=== PATIENT | female | born 1955 | race Caucasian/White ===

== ENCOUNTER → 2023-12-13 07:18 | Outpatient (REF) | payer MEDICARE, OTHER, SELFPAY | LOC: WDC 07:18 | PROVIDERS: ATTENDING PHYSICIAN Family Medicine | DX: Z12.31 Encounter for screening mammogram for malignant neoplasm of breast (principal) | CPT/HCPCS: 77063; 77067 ==

== ENCOUNTER → 2023-12-22 09:16 | Outpatient (REF) | payer MEDICARE, OTHER, SELFPAY | LOC: WDC 09:16 | PROVIDERS: ATTENDING PHYSICIAN Family Medicine | DX: R92.8 Other abnormal and inconclusive findings on diagnostic imaging of breast (principal) | CPT/HCPCS: 76642 ==

== ENCOUNTER → 2023-12-27 11:05 | Outpatient (REF) | payer MEDICARE, OTHER, SELFPAY ==
--- NOTE | 2023-12-27 13:35 | OID.BR.INTR ---
[facility] Breast Navigator - Initial
- -
Date of Contact: 12/27/23
Met with patient. Patient given written information on navigator services available at [facility]. Will follow up as needed per protocol.
== END ==
LOC: WDC 11:05
PROVIDERS: ATTENDING PHYSICIAN Family Medicine
DX: N63.21 Unspecified lump in the left breast, upper outer quadrant (principal)
CPT/HCPCS: 88305; 19083; 77065; 88341; 88342; 88360; A4648

== ENCOUNTER → 2024-01-14 12:10 | Outpatient (REF) | payer MEDICARE, OTHER, SELFPAY | LOC: WDC 12:10 | PROVIDERS: ATTENDING PHYSICIAN Surgery; FAMILY PHYSICIAN Family Medicine | DX: R92.2 Inconclusive mammogram (principal); C50.412 Malignant neoplasm of upper-outer quadrant of left female breast | CPT/HCPCS: 76641 ==

== ENCOUNTER → 2024-01-17 06:27 | Day surgery (SDC) | payer MEDICARE, OTHER, SELFPAY ==
[2024-01-17 09:13] LABS: ALT (SGPT) 18 U/L (0-35); AST (SGOT) 27 U/L (14-36); Albumin 4.6 g/dl (3.5-5.0); Alkaline Phosphatase 114 U/L (38-126); Blood Urea Nitrogen 30 mg/dl (7-17); Calcium 9.8 mg/dl (8.4-10.2); Carbon Dioxide 18 mmol/L (22-30); Chloride 114 mmol/L (98-107); Glucose 153 mg/dl (70-99); Potassium 4.2 mmol/L (3.5-5.1); Sodium 143 mmol/L (135-145); Total Bilirubin 0.6 mg/dl (0.2-1.3)
[2024-01-17 09:15] LABS: Hematocrit 41.3 % (37.0-47.0); Hemoglobin 13.6 g/dL (12.0-16.0); Mean Corp Hgb Conc. 32.9 g/dL (33.0-37.0); Mean Corpuscular Hgb 34.3 pg (27.0-31.0); Mean Corpuscular Volume 104.3 fL (81.0-99.0); Mean Platelet Volume 9.4 fL (7.4-10.4); Platelet Count 299 10^3/uL (130-400); Prealbumin (Transthyretin) 39.9 mg/dl (17.6-36.0); Red Blood Cell Count 3.96 10^6/uL (4.20-5.40); Red Cell Dist. Width 13.2 % (11.5-14.5); White Blood Cell Count 8.7 10^3/uL (4.8-10.8)
[2024-01-17 09:28] LABS: Vitamin D, 25-OH*** 31.9 ng/mL (30-80)
== END ==
LOC: SDSPAT 06:27
PROVIDERS: ATTENDING PHYSICIAN Surgery; FAMILY PHYSICIAN Family Medicine
DX: Z01.810 Encounter for preprocedural cardiovascular examination (principal); Z01.812 Encounter for preprocedural laboratory examination; C50.412 Malignant neoplasm of upper-outer quadrant of left female breast
CPT/HCPCS: 93005; 85025; 36415; 80053; 82306; 84134; 85027

== ENCOUNTER → 2024-01-24 09:45 | Outpatient (REF) | payer MEDICARE, OTHER, SELFPAY | LOC: WDC 09:45 | PROVIDERS: ATTENDING PHYSICIAN Surgery | DX: C50.412 Malignant neoplasm of upper-outer quadrant of left female breast (principal); N63.21 Unspecified lump in the left breast, upper outer quadrant | CPT/HCPCS: 19285; 38792; 76942; 77065; A4648; A9541 ==

== ENCOUNTER 2024-01-25 06:47 | Day surgery (SDC) | payer MEDICARE, OTHER, SELFPAY ==
[2024-01-17 09:57] VITALS: BMI 25.6
--- NOTE | 2024-01-18 11:50 | PTCARENOTE ---
Patients 01/16 [id number]- Alexandrea @ Dr. Gustafson office noitified
--- NOTE | 2024-01-19 12:33 | SUR.OPER ---
Spoke with patient- answered questions sharply and with angry tone. Questioned patient regarding same and she stated she 'has nothing to live for, son last year and now this- breast cancer'. Patient very emotional and crying- unable to
complete call and hung up. Klaus @ Dr. Gustafson office notified of interaction.
[2024-01-25] VITALS (9 sets, daily range): BP systolic 93–167; BP diastolic 52–94; BMI 25.6
[2024-01-25] MEDS: NORMOSOL-R 1000 IV (08:05)
[2024-01-25] MEDS: TYLENOL 1000 MG PO (08:08)
[2024-01-25 08:13] LABS: Glucose - Point of Care 137 mg/dl (70-99)
[2024-01-25] MEDS: LOVENOX 40 MG SC (09:16)
--- NOTE | 2024-01-25 11:19 | W.IMMPOSTOP ---
Surgical Immed Post Op Note
-
Primary Surgeon: Avril
Assisting Surgeon: None
Pre-op Diagnosis: Left breast ca
Post-op Diagnosis: Same
Procedure Performed: Left localized lumpectomy, sentinel lymph node mapping and biopsy
Anesthesia Type: TIVA
Specimen / Cultures: Left lumpectomy, margins, sentinel nodes
Estimated Blood Loss: 4cc
Complications: None
Operative Findings: Clip, reflector and mass in specimen; neg sentinel nodes (2)
[place] Node Bx Breast Cancer
[place] Node Bx Breast Cancer
Operation performed with curative intent: Yes
Tracer(s) to ID [place] Nodes in Non-Neoadjuvant setting: Radioactive Tracer
Tracer(s) to ID [place] Nodes in the Neoadjuvant Setting: N/A
All nodes at end of dye-filled Lymphatic Channel removed: N/A
All Significantly Radioactive Nodes were removed: Yes
All Palpably Suspicious Nodes were Removed: Yes
Bx Proven Pos Nodes Marked Prior to Chemo ID'd & Removed: N/A
[2024-01-25 11:20] LABS: Glucose - Point of Care 115 mg/dl (70-99)
== END 2024-01-25 13:20 | disposition home or self-care (01) ==
LOC: SDS 06:47
PROVIDERS: ATTENDING PHYSICIAN Surgery
DX: C50.412 Malignant neoplasm of upper-outer quadrant of left female breast (principal); Z17.0 Estrogen receptor positive status [ER+]
CPT/HCPCS: 19301; 38525; 88305; 88307; 76098; 82962; 88341; 88342; A4648; L8000